=== PATIENT | male | born 1960 | race African-American/Black ===

== ENCOUNTER 2020-08-12 15:35 | Observation (INO) | payer BC, SELFPAY ==
[2020-08-12] VITALS (13 sets, daily range): BP systolic 96–150; BP diastolic 77–101; PULSE 77–125; RESP 17–23; TEMP 36–36.8; O2SAT 99–100; BMI 22.3
--- NOTE | ~2020-08-12 | CT_ITS ---
EXAMINATION: CT brain wo con EXAM DATE: 08/12/2020 16:20 INDICATION: Seizures, fall with head injury. TECHNIQUE: Spiral CT of the head was performed without contrast. Axial, coronal and sagittal images were reviewed. The dose-length product (DLP) for this examination was 681.00 mGy-cm. The exposure w as tailored according to patient size, and iterative reconstruction (ASIR) was used as additional dos e reduction technique. There is no prior study for comparison. FINDINGS: There is no acute intraparenchymal hemorrhage. No evidence of intraparenchymal brain mass lesion. No evidence of acute infarction. Please note that initial head CT has limited sensitivity f or small or acute infarctions. There is mild periventricular and subcortical hypodensity, nonspecific but probably related to small vessel ischemic disease. There is moderate prominence of the sulci a nd ventricles related to cerebral atrophy. There is intracranial carotid arteriosclerosis. There a re no extra-axial collections. There is no mass effect or midline shift. Small right frontal scalp contusion, possible overlying laceration. The orbits are unremarkable. The visualized sinuses and mas toid air cells are well aerated. IMPRESSION: 1. No acute intracranial findings. 2. Chronic age related findings. 3. Small right parietal scalp contusion. Possible overlying laceration. Reviewed, dictated and finalized at location G.
--- NOTE | ~2020-08-12 | XR_ITS ---
EXAMINATION: XR chest 2V EXAM DATE: 08/12/2020 16:27 INDICATION: Syncope, dehydration, history of hypertension. TECHNIQUE: Frontal and lateral projections of the chest obtained and reviewed. There is no prior remigio dy for comparison. FINDINGS: The lungs are clear. There are no pleural effusions. The cardiomediastinal silhouette is within normal limits. There is no pneumothorax suspected. Patient has diffuse idiopathic skeletal h yperostosis (DISH). IMPRESSION: No acute cardiopulmonary findings. Reviewed, dictated and finalized at location G.
--- NOTE | 2020-08-12 15:43 | ECG_ITS ---
Measurements Intervals [place] Rate: 91 P: 32 WI: 168 QRS: 27 QRSD: 93 T: 45 QT: 348 QTc: 429 Interpretive Statements SINUS RHYTHM BASELINE ARTIFACT- I, II, III, AVR, AVL, AVF BORDERLINE ECG Electronically Signed On 08-12-2020 16:09:24 CDT by Dixon Montilla D.O.
[2020-08-12] MEDS: SODIUM CHLORIDE 0.9% IV 1,000 ML 999 ML IV CONT ×2 (15:56→16:51)
[2020-08-12 16:14] LABS: Basophils Percent Auto 0.2 % (0.2-1.2); Eosinophils Percent Auto 0.5 % (0-4.4); Hemoglobin 12.3 g/dL (14.0-18.0); Immature Granulocyte Absolute 0.04 K/mm3 (0.00-0.031); Immature Granulocyte Percent A 0.7 % (0-0.5); Lymphocytes Percent Auto 15.1 % (18.3-44.2); Mean Corpuscular HGB Conc 35.1 g/dl (32-36); Mean Corpuscular Hemoglobin 32.3 pg (26-34); Mean Corpuscular Volume 91.9 fl (80-100); Mean Platelet Volume 9.7 fl (7.4-10.4); Monocytes Absolute Auto 0.5 K/mm3 (0.1-0.6); Monocytes Percent Auto 7.7 % (2.6-8.5); Neutrophils Absolute Auto 4.5 K/mm3 (1.3-6.7); Neutrophils Percent Auto 75.8 % (45.5-73.1); Nucleated Red Blood Cells Perc 0.3 % (0.0-0.2); Platelet Count Result 163 k/mm3 (150-375); Red Blood Count 3.81 M/mm3 (4.6-6.20); Red Cell Distribution Width 14.3 % (11.5-14.5)
[2020-08-12 16:22] LABS: Prothrombin Time 12.6 Seconds (11.1-14.7)
[2020-08-12 16:23] LABS: Alanine Aminotransferase 46 U/L (4-50); Albumin Level 4.8 g/dL (3.5-5.1); Alkaline Phosphatase 70 U/L (38-126); Anion Gap 12 mmol/L (8-16); Aspartate Amino Transferase 72 U/L (17-59); Blood Urea Nitrogen 19 mg/dL (9-20); Calcium 10.1 mg/dL (8.4-10.2); Carbon Dioxide 24 mmol/L (22-30); Chloride 101 mmol/L (98-107); Estimated CRCL calculation 34 ml/min; Estimated Glomerular Filt Rate 39; Glucose 137 mg/dL (75-110); Partial Thromboplastin Time 24.9 SECONDS (22.3-36.8); Potassium 3.6 mmol/L (3.4-5.0); Sodium 137 mmol/L (137-145)
[2020-08-12 16:35] LABS: Troponin I < 0.012 ng/mL (0.000-0.034)
[2020-08-12] MEDS: TETANUS,DIPHTHERIA,AC PERTUSSIS ADULT (0.5 ML) BOOSTRIX IM (17:11)
[2020-08-12] MEDS: diazePAM INJ (*CRX) 10 MG/2 ML SYRINGE 3 MG IV PUSH (17:26)
--- NOTE | 2020-08-12 18:18 | ED.SEIZURE ---
HPI - Seizure General Chief Complaint: Seizure Stated Complaint: FALL Time Seen by Provider: 08/12/20 15:35 History of Present Illness HPI Narrative: Patient is a 60-year-old male who presents the ER with possible seizure versus syncope. Patient was at a local restaurant when he collapsed from his barstool. Had brief LOC and woke up and was oriented immediately. EMS arrived and patient refused transport. They were called back out within 10 minutes after a recurrent episode. Patient had loss of urine. Patient thinks he had a seizure 5 years ago but is unsure if his seizure versus syncope at that time as well. Patient is a daily drinker. Reports he gets the shakes 2 days after he stops drinking. Related Data Allergies Allergy/AdvReac Type Severity Reaction Status Date / Time No Known Allergies Allergy Unknown Unverified 09/29/17 17:51 Review of Systems Review of Systems: All systems reviewed & are unremarkable except as noted in HPI and below Constitutional: Constitutional: Denies chills, Denies fever(s) and Denies weakness ENT: Denies nasal congestion and Denies sore throat Respiratory: Respiratory: Denies cough and Denies dyspnea Gastrointestinal: Gastrointestinal: Denies abdominal pain, Denies nausea and Denies vomiting Neurologic: Reports syncope, Denies headache(s), Denies focal weakness and Denies numbness Comments: ?[facility] Past Medical History Medical History (Updated 08/12/20 @ 18:31 by Salinas Yeung MD) Benign essential HTN Calculus of gallbladder Chronic anemia Chronic renal failure, stage 2 (mild) Elevated PSA Internal hemorrhoids Mixed hyperlipidemia Normal colonoscopy Surgical History Surgical History (Updated 02/03/20 @ 20:52 by Mandy Jolly MD) History of appendectomy Family History Family History (Updated 01/12/19 @ 10:23 by DOCTOR UNKNOWN) Sibling Patient's sister is in good health Patient's brother is in good health Father Family history of lung cancer, Onset Age: 69 Mother Family history of lung cancer Other Hypertension Social History Social History (Updated 01/31/20 @ 11:39 by Laura Padron) Social History: Smoking status: Never smoker Second hand tobacco smoke exposure: No Alcohol intake: current Drinks per week: 8 Substance use: never Substance use type: does not use Gender identity (if verbalized by the patient): Male Exam Narrative: Exam Narrative: GENERAL: Well-appearing, well-nourished, and in no acute distress. HEAD: Normocephalic, 2 cm laceration right parieto-occipital region.. EYES: PERRL and EOMI. ENT: Mucous membranes moist. CHEST: Clear to auscultation. No respiratory distress. HEART: Regular rate and rhythm. Normal peripheral pulses. ABDOMEN: Soft, nontender, nondistended. EXTREMITIES: Normal range of motion. No edema. SKIN: Warm, dry, no rash. NEURO: No focal deficits. Diffuse tremors. Alert and oriented x3. Course Course Emergency Course: Patient persistently tremulous despite fluids and some Valium. Will give additional dose of Valium. Suspect alcohol withdrawal seizure however patient was quite orthostatic upon arrival. Vital Signs Vital signs: Vital Signs Temperature 98.2 F 08/12/20 15:35 Pulse Rate 88 08/12/20 15:35 Respiratory Rate 17 08/12/20 15:35 Blood Pressure 110/86 08/12/20 15:35 Pulse Oximetry 100 08/12/20 15:35 Temperature 98.2 F 08/12/20 15:35 Pulse Rate 103 H 08/12/20 18:21 Respiratory Rate 22 H 08/12/20 18:00 Blood Pressure 144/101 H 08/12/20 18:21 Pulse Oximetry 99 08/12/20 18:00 MDM - Seizure Lab Data Result diagrams: 08/12/20 16:05 08/12/20 16:05 Labs: Lab Results 08/12/20 08/12/20 08/12/20 Range/Units 16:05 16:05 16:05 WBC 6.0 (4.5-10.0) K/mm3 RBC 3.81 L (4.6-6.20) M/mm3 Hgb 12.3 L (14.0-18.0) g/dL Hct 35.0 L (42.0-52.0) % MCV 91.9 (80-100)
[2020-08-12] MEDS: diazePAM INJ (*CRX) 10 MG/2 ML SYRINGE 5 MG IV PUSH (18:24)
[2020-08-12 18:31] LABS: Magnesium 1.8 mg/dL (1.6-2.3)
--- NOTE | 2020-08-12 20:15 | PM.IMHP ---
H&P: HPI History of Present Illness Date/Time: 08/12/20 20:15 Chief complaint: alcohol withdrawal, seizure vs syncope Narrative: Toni Sheppard is a 60-year-old male with hypertension and alcohol abuse who presented to the emergency department earlier today for evaluation after a suspected seizure. He was at a local restaurant with friends when he began feeling strange and started shaking; the next thing he knows he was coming to on the floor, surrounded by his friends. He was told that he loss consciousness and appeared to have a brief seizure for maybe 15 seconds with ?foaming of the mouth? and loss of urine. He declined EMS transported at that time as he felt fine, and was not postictal. Within about 10 minutes he had a recurrent episode and he agreed to come in for evaluation. He was tremulous in the emergency department was also found to be orthostatic. With further questioning he does admit to drinking 4 or 5 days a week, typically consuming 10 beers and several shots of vodka each of those days. He does not want to be a daily drinker, so he always has periods of at least 2 or 3 days a week where he does not consume alcohol. The 1st day after he stops drinking he feels poorly with nausea, vomiting, poor appetite, and tremors which seem to last for a couple of days. He believes he had a seizure about 5 years ago in a similar setting, but was never diagnosed with alcohol withdrawal seizures. At the time my evaluation he is tremulous and tachycardic but is very pleasant and has no complaints. He specifically denies sweats, nausea, and hallucinations. He has some mild discomfort on the right side of his head where he struck it on and nearby wall with his 1st episode. Of note, he was given Valium in the emergency department with improvement in his shakes. Review of Systems Review of Systems: Narrative: Twelve systems were reviewed with pertinent positives and negatives as per HPI. No fever, chills, or sweats. No recent cold or flu symptoms. He denies chest pain, pleuritic pain, and palpitations. No cough or shortness of breath. No focal weakness or paresthesias. Except as documented, all other systems were reviewed and are negative. [facility] Past Medical History Medical History (Updated 08/12/20 @ 22:43 by Sara Mendes PA-C) Alcohol abuse Calculus of gallbladder Chronic anemia Chronic renal failure, stage 2 (mild) GFR is consistent with stage 3 chronic kidney disease however he has been followed by Dr. Kent who believes that his labs are underestimating his renal function and considers him to be stage 2 chronic kidney disease. Elevated PSA Prostate biopsy was reportedly negative in September 2019. Essential hypertension Internal hemorrhoids (~2014) Mixed hyperlipidemia Surgical History Surgical History (Updated 08/12/20 @ 22:39 by Sara Mendes PA-C) History of appendectomy History of prostate biopsy Family History Family History Sibling Patient's sister is in good health Patient's brother is in good health Father Family history of lung cancer, Onset Age: 69 Mother Family history of lung cancer Other Hypertension Social History Social History (Updated 08/12/20 @ 22:48 by Sara Mendes PA-C) Social History: The patient is and lives in [place] with his son. 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 He is a lifelong nonsmoker and denies illicit substance use. He drinks alcohol about 5 days a week, usually 10 beers and shots of vodka each day. He designates his son as his surrogate decision maker and he wishes to be a full code. Spiritual care concerns: No Meds Home Medications and Allergies Home Medications Medication Instructions Recorded Confirmed Type lisinopril 20 1 tablet PO DAILY #90 tablet 01/31/20 08/12/20 Rx mg-hydrochlorothiazide 12.5 mg tablet metoprolol succinate 100 mg 100 mg PO DA
[2020-08-12] MEDS: SODIUM CHLORIDE 0.9% IV 1,000 ML 125 ML IV CONT (20:26)
[2020-08-12 20:33] LABS: Ethanol < 10 mg/dL (<10)
[2020-08-12 21:25] LABS: Iron 39 ug/dL (49-181)
[2020-08-12 21:34] LABS: Percent Iron Saturation 15 % (20-50)
[2020-08-12 21:41] LABS: Folic Acid 11.6 ng/mL (2.76->20)
[2020-08-12] MEDS: THIAMINE HCL 200 MG/2 ML VIAL 100 MG IV PUSH (23:08)
[2020-08-12] MEDS: CYANOCOBALAMIN INJ 1,000 MCG/ML VIAL 1000 MCG IM (23:09)
[2020-08-12] MEDS: chlordiazePOXIDE (*CRX) 25 MG CAPSULE PO (23:13)
[2020-08-13] VITALS (10 sets, daily range): BP systolic 121–144; BP diastolic 70–87; PULSE 76–109; RESP 16–18; TEMP 36.7–37.2; O2SAT 99–100
[2020-08-13] MEDS: SODIUM CHLORIDE 0.9% IV 1,000 ML 125 ML IV CONT (02:50)
[2020-08-13] MEDS: chlordiazePOXIDE (*CRX) 25 MG CAPSULE PO (05:57)
[2020-08-13] MEDS: FOLIC ACID 1 MG TABLET PO (07:46)
[2020-08-13] MEDS: METOPROLOL SUCCINATE EXT REL 100 MG TABCR PO (07:46)
[2020-08-13] MEDS: ASPIRIN 325 MG TABLET PO (07:46)
[2020-08-13] MEDS: THIAMINE HCL 100 MG TABLET PO (07:46)
[2020-08-13] MEDS: THERAPEUTIC MULTIVITAMINS/MINERALS TAB (*BKC) 1 TABLET PO (07:46)
[2020-08-13 08:50] LABS: Alanine Aminotransferase 44 U/L (4-50); Albumin Level 4.4 g/dL (3.5-5.1); Alkaline Phosphatase 60 U/L (38-126); Anion Gap 9 mmol/L (8-16); Aspartate Amino Transferase 75 U/L (17-59); Bilirubin,Total 0.7 mg/dL (0.2-1.3); Blood Urea Nitrogen 13 mg/dL (9-20); Calcium 9.3 mg/dL (8.4-10.2); Carbon Dioxide 26 mmol/L (22-30); Chloride 103 mmol/L (98-107); Estimated CRCL calculation 53 ml/min; Estimated Glomerular Filt Rate > 60; Glucose 107 mg/dL (75-110); Potassium 3.6 mmol/L (3.4-5.0); Sodium 138 mmol/L (137-145)
--- NOTE | 2020-08-13 09:15 | ECHO_ITS ---
Patient Info Name: Toni Sheppard Age: 60 years : 1960 Gender: Male Ht: 70 in Wt: 155 lbs BSA: 1.86 m2 HR: 67 bpm BP: 130 / 81 mmHg Heart Rhythm: Sinus Rhythm Technical Quality: Good Exam Date: 08/13/2020 11:18 AM Exam Location: [facility] Patient Status: Inpatient Admit Date: 08/12/2020 Staff Ordering Physician: Huang Liang PA-C Furniture Mover Driver: Ramírez Rasheed RDCS Attending Provider: Huang Liang PA-C Referring Physician: Garth VÁSQUEZ; Exam Type: CA echo doppler color flow Study Info Indications I10 - Essential (primary) hypertension Complete two-dimensional, color flow and Doppler transthoracic echocardiogram is performed. History/Risk Factors HTN; EtOH withdrawal, orthostatic HoTN. Summary 1. Complete two-dimensional, color flow and Doppler transthoracic echocardiogram is performed. 2. Left ventricular chamber dimension is normal. 3. Left ventricular systolic function is normal, estimated at 60-65%. 4. The left ventricular diastolic function is normal. 5. E/e' 9 is minimally elevated. 6. There is trace aortic valve regurgitation. 7. The mitral valve has moderately calcified anterior leaflet. 8. There is mild mitral valve regurgitation. 9. No pulmonary hypertension, estimated pulmonary arterial systolic pressure is 31 mmHg. 10. There is mild pulmonic regurgitation. Left Ventricle E/e' 9 is minimally elevated. Left ventricular chamber dimension is normal. Left ventricular systolic function is normal, estimated at 60-65%. The left ventricular diastolic function is normal. Right Ventricle Right ventricular chamber dimension is normal. Right ventricular systolic function is normal. Left Atria Left atrial chamber dimension is normal. Right Atria Right atrial chamber dimension is normal. Aortic Valve The aortic valve is trileaflet. There is no aortic valve stenosis. There is trace aortic valve regurgitation. Pulmonic Valve There is mild pulmonic regurgitation. Mitral Valve The mitral valve has moderately calcified anterior leaflet. There is no mitral valve stenosis. There is mild mitral valve regurgitation. Tricuspid Valve There is no tricuspid valve regurgitation. No pulmonary hypertension, estimated pulmonary arterial systolic pressure is 31 mmHg. Pericardium/Pleural There is no pericardial effusion. Inferior Vena Cava Normal inferior vena cava with >50% collapse upon inspiration consistent with normal right atrial pressure, 5 mmHg. Aorta The aortic root size at the sinus of Valsalva is normal. Left Ventricular Outflow Tract Name Value Normal LVOT 2D LVOT Diameter 2.0 cm LVOT Doppler LVOT Peak Gradient 4 mmHg LVOT Mean Gradient 2 mmHg LVOT VTI 17 cm LVOT VTI/AV VTI Ratio 0.8 LVOT Stroke Volume 57 ml LVOT CO 5.0 l/min LVOT CI 2.7 l/min/m2 Mitral Valve
--- NOTE | 2020-08-13 10:30 | PM.DS ---
DS: Admitting Diagnosis Admitting Diagnosis Admitting Diagnosis: alcohol withdrawal, seizure vs syncope DS: Discharge Diagnosis Discharge Diagnosis (1) Loss of consciousness: Code(s): R40.20 - Unspecified coma Status: Inactive Assessment and Plan: Patient had seizure like activity x 2 yesterday following LOC, resulting a small head laceration (treated in ED with latoya). No post-ictal state, although loss of urine during one of the episodes. Notes similar episode happened nearly 5 years ago after a binge drinking episode and after he rode 8 miles on a bike with his friend. Patient orthostatic in ED, but this appears to have resolved. CT imaging grossly unremarkable for intracranial process. Could be related to alcohol withdrawal seizure, although he had a shot and beer yesterday prior to the incidents versus orthostatic hypotension with possible dehydration. Telemetry shows sinus rhythm; tachycardia occasionally; artifact noted; no other ectopy Echo grossly unremarkable He has been counseled on alcohol cessation and staying hydrated Last drink was yesterday, so will provide with 2 more days of librium Q12hr\ Instructed him not to drive/swim/bath until speaking with PCP F/u with PCP (2) Orthostatic hypotension: Code(s): I95.1 - Orthostatic hypotension Status: Acute Assessment and Plan: Appears to have resolved with IVF. Will stop IVF f/u with PCP (3) Alcohol withdrawal seizure: Code(s): F10.239 - Alcohol dependence with withdrawal, unspecified; R56.9 - Unspecified convulsions Status: Acute Assessment and Plan: No post-ictal state and had beer and a shot prior to episode yesterday As above, will do Libirum Q12 for 2 more days F/u with PCP Cessation resources have been provided We had lengthy discussion about benefits of alcohol cessation. He seems willing/motivated to stop drinking (4) Chronic renal failure, stage 2 (mild): Code(s): N18.2 - Chronic kidney disease, stage 2 (mild) Status: Acute Assessment and Plan: Likely acute on chronic renal failure; unclear baseline. Cr improved to 1.30 overnight with IVF. Apison to be due to dehydration Will stop IV F Recommended adequate PO intake F/u with PCP\ (5) Essential hypertension: Code(s): I10 - Essential (primary) hypertension Status: Acute Assessment and Plan: BP has improved overnight. Will continue home metorpolol Will resume amlodipine at discharge Will continue to hold lisinopril/HCTZ F/u with PCP on when to resume above med given renal function and orthostatic hypotension Monitor BP daily after discharge (6) Alcohol abuse: Code(s): F10.10 - Alcohol abuse, uncomplicated Status: Acute Assessment and Plan: Please see above under alcohol withdrawal seizure. (7) B12 deficiency: Code(s): E53.8 - Deficiency of other specified B group vitamins Status: Acute Assessment and Plan: Given vit B12 IM injection this hospital stay Will give daily supplement at discharge F/u with PCP DS: Summary Hospital Course Reason for hospitalization: LOC, seizure like activity; possibly alcohol withdrawal seizure vs orthostatic hypotension Hospital Course: Patient is a 60 yo M with history of hypertension and alcohol abuse who presented to the emergency department on 08/12 for evaluation after a suspected seizure/LOC. While at a restaurant, he had one shot and a beer and lost consciousness and had seizure activity twice while sitting up. He was subsequently brought to the ED for further evaluation. While in the ED he was noted to be orthostatic. Creatinine was found to be 2.10 on arrival. AST mild
== END 2020-08-13 14:01 | disposition home or self-care (01) ==
LOC: ANHED 18:40 → ANH3MEDSUR 08-13 06:49
PROVIDERS: Physician Assistant; Admitting Provider Internal Medicine; Emergency Provider Emergency Medicine; PCP Family Medicine; Visit Provider Physician Assistant
DX: R40.20 Unspecified coma (principal); I95.1 Orthostatic hypotension; F10.288 Alcohol dependence with other alcohol-induced disorder; R56.9 Unspecified convulsions; S01.01XA Laceration without foreign body of scalp, initial encounter; W18.39XA Other fall on same level, initial encounter; I12.9 Hypertensive chronic kidney disease with stage 1 through stage 4 chronic kidney disease, or unspecified chronic kidney disease; M18.2 Bilateral post-traumatic osteoarthritis of first carpometacarpal joints; E78.2 Mixed hyperlipidemia; D64.9 Anemia, unspecified; I34.0 Nonrheumatic mitral (valve) insufficiency; I37.1 Nonrheumatic pulmonary valve insufficiency; E53.8 Deficiency of other specified B group vitamins; Z23 Encounter for immunization
CPT/HCPCS: 12001; 36415; 70450; 71046; 80053; 80307; 82607; 82728; 82746; 83540; 83550; 83735; 84443; 84484; 85025; 85055; 85610; 85730; 90471; 90715; 93005; 93306; 96361; 96372; 96374; 96375; 96376; 99285; A9270; G0378; J3360; J3411; J3420; J7030

== ENCOUNTER 2023-11-04 02:35 | Day surgery (SDC) | payer MEDICARE, SELFPAY ==
[2023-10-21 14:37] VITALS: BMI 23.3
--- NOTE | 2023-11-02 09:35 | SUR.PREOP ---
Patient called regarding upcoming procedure. Reviewed preop instructions, appointment times, and procedure prep.
--- NOTE | 2023-11-03 16:04 | PM.HPGS ---
History of Present Illness History of Present Illness Consent: Risks, benefits, and alternatives have been discussed and questions answered. Patient agrees to proceed with procedure. Chief complaint: Anemia,Unspecified Narrative: Toni Sheppard Jr. is a 63 year old male For investigation of anemia. Apparently he had laboratory studies ordered by his primary care physician but these may not have been done. The last hemoglobin I can find is 12.3. Review of Systems Review of Systems: All systems reviewed & are unremarkable except as noted in HPI and below PMFSH Past Medical History Medical History Alcohol abuse Calculus of gallbladder Chronic anemia Chronic renal failure, stage 2 (mild) GFR is consistent with stage 3 chronic kidney disease however he has been followed by Dr. Kent who believes that his labs are underestimating his renal function and considers him to be stage 2 chronic kidney disease. Elevated liver enzymes Elevated PSA Prostate biopsy was reportedly negative in September 2019. Essential hypertension Gout Internal hemorrhoids (~2014) Mixed hyperlipidemia Normocytic anemia Surgical History Surgical History History of appendectomy History of prostate biopsy Family History Family History Sibling Patient's sister is in good health Patient's brother is in good health Father Family history of lung cancer, Onset Age: 69 Mother Family history of lung cancer Other Hypertension Social History Social History Social History: The patient is and lives in [place] with his son. 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 He is a lifelong nonsmoker and denies illicit substance use. He drinks alcohol about 5 days a week, usually 10 beers and shots of vodka each day. He designates his son as his surrogate decision maker and he wishes to be a full code. Smoking status: Never smoker Second hand tobacco smoke exposure: No Alcohol intake: current Drinks per week: 8 Substance use: never Substance use type: does not use Living arrangements: alone Occupation/Education: retired Gender identity (if verbalized by the patient): Male Sexual Orientation (if Verbalized by the Patient): Straight or Heterosexual Spiritual care concerns: No Meds Home Medications and Allergies Home Medications Medication Instructions Recorded Confirmed Type metoprolol succinate 100 mg 100 mg PO DAILY #90 tabs 01/31/20 10/21/23 Rx tablet,extended release 24 hr amlodipine 10 mg tablet (Norvasc) 10 mg PO DAILY 08/12/20 10/21/23 History cyanocobalamin (vitamin B-12) 1,000 mcg PO DAILY #30 caps 08/13/20 10/21/23 Rx 1,000 mcg capsule allopurinol 300 mg tablet 300 mg PO DAILY #30 tabs 09/02/20 10/21/23 Rx rosuvastatin 5 mg tablet 5 mg PO DAILY 10/06/23 10/21/23 History Allergies Allergy/AdvReac Type Severity Reaction Status Date / Time No Known Allergies Allergy Unknown Unverified 11/04/23 10:37 Exam Resp: Auscultation: clear to auscultation bilaterally Cardio: Rate: regular rate Rhythm: regular rhythm GI: GI Palp: Yes Soft to palpation and No Tenderness to palpation present (GI) Assessment and Plan Assessment and plan (1) Normocytic anemia: Code(s): D64.9 - Anemia, unspecified Status: Acute Assessment and Plan: Colonoscopy with possible biopsy or polypectomy or cautery or injection of substances.
[2023-11-04 10:38] VITALS: BP 125/77; PULSE 66; RESP 18; TEMP 36.1; O2SAT 100
[2023-11-04] MEDS: LACTATED RINGERS 1,000 ML 150 ML IV CONT (10:56)
--- NOTE | 2023-11-04 11:01 | WPDANESEPPF ---
Anes - Initial Pre Proc Eval Procedure: Operation Date: 11/04/23 11:30 Proposed Procedures p Colonoscopy - Jayce Arroyo MD Date/Time: 11/04/23 11:01 Surgeon: Jayce Arroyo MD Pre Op Diagnosis: Anemia,Unspecified Patient Data Age: 63 Gender: M Height: 1.78 m Weight: 73 kg Last Vital Signs Temp 36.1 C L 11/04/23 10:38 Pulse 66 11/04/23 10:38 Resp 18 11/04/23 10:38 BP 125/77 11/04/23 10:38 Pulse Ox 100 11/04/23 10:38 O2 Del Method Room Air 11/04/23 10:38 Allergies Allergy/AdvReac Type Severity Reaction Status Date / Time No Known Allergies Allergy Unknown Unverified 11/04/23 10:37 Home Medications Medication Instructions Recorded Confirmed Type metoprolol succinate 100 mg 100 mg PO DAILY #90 tabs 01/31/20 10/21/23 Rx tablet,extended release 24 hr amlodipine 10 mg tablet (Norvasc) 10 mg PO DAILY 08/12/20 10/21/23 History cyanocobalamin (vitamin B-12) 1,000 mcg PO DAILY #30 caps 08/13/20 10/21/23 Rx 1,000 mcg capsule allopurinol 300 mg tablet 300 mg PO DAILY #30 tabs 09/02/20 10/21/23 Rx rosuvastatin 5 mg tablet 5 mg PO DAILY 10/06/23 10/21/23 History Patient hx anesthesia problems: none Family hx anesthesia problems: none Results Review: All pre-operative results and documents have been reviewed as part of the pre-operative evaluation. [facility] Past Medical History Medical History Alcohol abuse Calculus of gallbladder Chronic anemia Chronic renal failure, stage 2 (mild) GFR is consistent with stage 3 chronic kidney disease however he has been followed by Dr. Kent who believes that his labs are underestimating his renal function and considers him to be stage 2 chronic kidney disease. Elevated liver enzymes Elevated PSA Prostate biopsy was reportedly negative in September 2019. Essential hypertension Gout Internal hemorrhoids (~2014) Mixed hyperlipidemia Normocytic anemia Surgical History Surgical History History of appendectomy History of prostate biopsy Family History Family History Sibling Patient's sister is in good health Patient's brother is in good health Father Family history of lung cancer, Onset Age: 69 Mother Family history of lung cancer Other Hypertension Social History Social History Social History: The patient is and lives in [place] with his son. 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 He is a lifelong nonsmoker and denies illicit substance use. He drinks alcohol about 5 days a week, usually 10 beers and shots of vodka each day. He designates his son as his surrogate decision maker and he wishes to be a full code. Smoking status: Never smoker Second hand tobacco smoke exposure: No Alcohol intake: current Drinks per week: 8 Substance use: never Substance use type: does not use Living arrangements: alone Occupation/Education: retired Gender identity (if verbalized by the patient): Male Sexual Orientation (if Verbalized by the Patient): Straight or Heterosexual Spiritual care concerns: No Anes - Eval Final PreProcedure Day of Procedure 11/04/23 11:01 Patient weight: normal Heart: regular rate and rhythm Lungs: clear to auscultation Airway: Mallampati scale class II Neurological: alert and oriented Last oral intake: >/= 8 hours ASA classification: III Emergent: no Anesthetic plan: proceed Anesthesia type and monitoring: general GIVS and standard monitoring Results Review: All pre-operative results and documents have been reviewed as part of the pre-operative evaluation. Informed Consent: The patient's anesthetic plan and its attendant risks and benefits were discussed with the patient/family/POA. Questions were solicited and answers provided to the satisfaction
[2023-11-04 11:29] VITALS: BP 105/67; PULSE 80; RESP 15; O2SAT 100
[2023-11-04 11:39] VITALS: BP 101/71; PULSE 71; RESP 23; O2SAT 100
[2023-11-04 11:49] VITALS: BP 98/71; PULSE 75; RESP 25; O2SAT 100
== END 2023-11-04 12:04 | disposition home or self-care (01) ==
PROVIDERS: PCP Student in an Organized Health Care Education/Training Program; Visit Provider Internal Medicine Gastroenterology
PROC: 0DJD8ZZ Inspection of Lower Intestinal Tract, Via Natural or Artificial Opening Endoscopic (ICD-10-PCS; CPT 45378; principal; 2023-11-04 11:30)
DX: D50.9 Iron deficiency anemia, unspecified (principal); K64.8 Other hemorrhoids; I12.9 Hypertensive chronic kidney disease with stage 1 through stage 4 chronic kidney disease, or unspecified chronic kidney disease; N18.2 Chronic kidney disease, stage 2 (mild); E78.2 Mixed hyperlipidemia; M10.9 Gout, unspecified
CPT/HCPCS: 45378; J2704; J7120

== ENCOUNTER 2023-11-28 08:49 | Outpatient (CLI) | payer MEDICARE, SELFPAY ==
--- NOTE | ~2023-11-28 | US_ITS ---
Limited Abdominal Sonogram: Real-time sonographic imaging of the right upper quadrant was performed. Clinical History: Abnormal liver enzymes Findings: The liver appears mildly echogenic, with no evidence of mass lesion or bile duct dilatatio n. Main portal vein demonstrates normal direction of flow. The gallbladder is well distended, and con tains echogenic, shadowing gallstones. No gallbladder wall thickening. The common bile duct measures 4 mm. The visualized pancreas, aorta, and IVC are unremarkable. Right upper renal cyst noted. Impression: Cholelithiasis. Diffuse fatty infiltration of the liver. Reviewed, dictated and finalized at location . N MEAT PACKER Impression: Cholelithiasis. Diffuse fatty infiltration of the liver.
== END 2023-11-28 08:50 | disposition home or self-care (01) ==
PROVIDERS: PCP Student in an Organized Health Care Education/Training Program; Visit Provider Nurse Practitioner
DX: R74.8 Abnormal levels of other serum enzymes (principal); K80.20 Calculus of gallbladder without cholecystitis without obstruction; K76.0 Fatty (change of) liver, not elsewhere classified
CPT/HCPCS: 76705

== ENCOUNTER 2023-12-26 11:02 | Outpatient (CLI) | payer MEDICARE, SELFPAY ==
[2023-12-26 11:46] LABS: Hematocrit 37.5 % (42.0-52.0); Hemoglobin 13.1 g/dL (14.0-18.0); Mean Corpuscular HGB Conc 34.9 g/dl (32-36); Mean Corpuscular Hemoglobin 30.2 pg (26-34); Mean Corpuscular Volume 86.4 fl (80-100); Red Blood Count 4.34 M/mm3 (4.6-6.20); Red Cell Distribution Width 13.2 % (11.5-14.5); White Blood Count 4.5 K/mm3 (4.5-10.0)
[2023-12-26 11:47] LABS: Mean Platelet Volume 10.9 fl (7.4-10.4); Platelet Count Result 162 k/mm3 (150-375)
[2023-12-26 12:00] LABS: Alanine Aminotransferase 53 U/L (6-50); Albumin Level 4.3 g/dL (3.5-5.1); Alkaline Phosphatase 74 U/L (38-126); Anion Gap 8 mmol/L (8-16); Aspartate Amino Transferase 32 U/L (17-59); Bilirubin,Total 0.9 mg/dL (0.2-1.3); Blood Urea Nitrogen 19 mg/dL (9-20); Calcium 9.5 mg/dL (8.4-10.2); Carbon Dioxide 27 mmol/L (22-30); Chloride 105 mmol/L (98-107); Estimated Glomerular Filt Rate > 60; Glucose 103 mg/dL (65-110); Potassium 3.8 mmol/L (3.4-5.0); Sodium 140 mmol/L (137-145)
[2023-12-26 12:32] LABS: Hepatitis B Surface Antigen Negative (Negative)
[2023-12-26 12:38] LABS: HAV RESULT Negative (Negative); Hepatitis B Core IgM Result Negative (Negative)
[2023-12-26 12:50] LABS: Hepatitis C Virus Antibody Negative (Negative)
== END 2023-12-26 11:03 | disposition home or self-care (01) ==
LOC: ANHLAB 11:03
PROVIDERS: PCP Student in an Organized Health Care Education/Training Program; Visit Provider Nurse Practitioner
DX: K76.0 Fatty (change of) liver, not elsewhere classified (principal); R74.8 Abnormal levels of other serum enzymes; R94.5 Abnormal results of liver function studies; I10 Essential (primary) hypertension
CPT/HCPCS: 36415; 80053; 80074; 85027

== ENCOUNTER 2024-06-28 09:45 | Outpatient (CLI) | payer MEDICARE, SELFPAY ==
[2024-06-28 10:29] LABS: Basophils Percent Auto 0.4 % (0.2-1.2); Eosinophils Percent Auto 0.4 % (0-4.4); Hematocrit 41.6 % (42.0-52.0); Hemoglobin 14.2 g/dL (14.0-18.0); Immature Granulocyte Absolute 0.02 K/mm3 (0.00-0.031); Immature Granulocyte Percent A 0.4 % (0-0.5); Lymphocytes Absolute Auto 1.08 K/mm3 (0.9-3.2); Lymphocytes Percent Auto 19.4 % (18.3-44.2); Mean Corpuscular HGB Conc 34.1 g/dl (32-36); Mean Corpuscular Hemoglobin 30.6 pg (26-34); Mean Corpuscular Volume 89.7 fl (80-100); Mean Platelet Volume 9.9 fl (7.4-10.4); Monocytes Absolute Auto 0.5 K/mm3 (0.1-0.6); Monocytes Percent Auto 8.6 % (2.6-8.5); Neutrophils Absolute Auto 3.9 K/mm3 (1.3-6.7); Neutrophils Percent Auto 70.8 % (45.5-73.1); Platelet Count Result 154 k/mm3 (150-375); Red Blood Count 4.64 M/mm3 (4.6-6.20); Red Cell Distribution Width 13.2 % (11.5-14.5); White Blood Count 5.6 K/mm3 (4.5-10.0)
[2024-06-28 10:37] LABS: Prothrombin Time 13.1 Seconds (11.1-14.7)
[2024-06-28 10:49] LABS: Alanine Aminotransferase 166 U/L (6-50); Albumin Level 5.3 g/dL (3.5-5.1); Alkaline Phosphatase 69 U/L (38-126); Anion Gap 17 mmol/L (4-12); Aspartate Amino Transferase 130 U/L (17-59); Bilirubin,Total 1.3 mg/dL (0.2-1.3); Blood Urea Nitrogen 21 mg/dL (9-20); Calcium 9.8 mg/dL (8.4-10.2); Carbon Dioxide 23 mmol/L (22-30); Chloride 102 mmol/L (98-107); Estimated Glomerular Filt Rate 57; Glucose 128 mg/dL (65-110); Potassium 3.7 mmol/L (3.4-5.0); Sodium 142 mmol/L (137-145)
[2024-06-28 16:29] LABS: Hemoglobin A1C 4.6 % (<5.7)
[2024-06-29 17:23] LABS: Ceruloplasmin 31 mg/dL (14-30)
[2024-07-04 07:09] LABS: Tissue Transglutaminase IgA Ab <1.0 U/mL; Tissue Transglutaminase IgG Ab <1.0 U/mL
[2024-07-05 14:05] LABS: LKM 1 Antibody <=20.0 U (<=20.0)
[2024-07-06 11:48] LABS: Actin Antibody (IgG) <20 U (<20)
[2024-07-06 13:35] LABS: ALT 130 U/L (9-46); Alpha-2-Macroglobulin 173 mg/dL (106-279); Apolipoprotein A1 201 mg/dL (94-176); Fibrosis Score 0.34; Fibrosis Stage F1-F2; GGT 81 U/L (3-70); Haptoglobin 114 mg/dL (43-212); Necroinflammat Act Grade A3; Reference ID 5059145
[2024-07-10 07:58] LABS: Mitochondrial (M2) Ab (IgG) <20.0 U
== END 2024-06-28 09:46 | disposition home or self-care (01) ==
PROVIDERS: Nurse Practitioner; PCP Student in an Organized Health Care Education/Training Program; Visit Provider Internal Medicine Gastroenterology
DX: K76.0 Fatty (change of) liver, not elsewhere classified (principal); R74.8 Abnormal levels of other serum enzymes; R73.9 Hyperglycemia, unspecified; D64.9 Anemia, unspecified
CPT/HCPCS: 36415; 80053; 81596; 82104; 82390; 83036; 83520; 85025; 85610; 86038; 86039; 86364; 86376

== ENCOUNTER 2024-10-04 01:47 | Day surgery (SDC) | payer MEDICARE, SELFPAY ==
[2024-09-24 14:37] VITALS: BMI 22.9
[2024-10-04 07:35] VITALS: BP 133/78; PULSE 67; RESP 19; TEMP 36.1; O2SAT 100; BMI 22.1
[2024-10-04] MEDS: LACTATED RINGERS 1,000 ML 150 ML IV CONT (07:42)
--- NOTE | 2024-10-04 08:23 | P.PNAN_ITS ---
Anes - Initial Pre Proc Eval Procedure: Operation Date: 10/04/24 08:30 Proposed Procedures p Esophagogastroduodenoscopy - Shailesh Yan MD Date/Time: 10/04/24 08:23 Surgeon: Shailesh Yan MD Pre Op Diagnosis: anemia, ab level serum enzymes, fatty change liver Patient Data Age: 64 Gender: M Height: 1.78 m Weight: 70.1 kg Last Vital Signs Temp 36.1 C L 10/04/24 07:35 Pulse 67 10/04/24 07:35 Resp 19 10/04/24 07:35 BP 133/78 10/04/24 07:35 Pulse Ox 100 10/04/24 07:35 O2 Del Method Room Air 10/04/24 07:35 Allergies Allergy/AdvReac Type Severity Reaction Status Date / Time No Known Allergies Allergy Unknown Verified 10/04/24 07:34 Home Medications Medication Instructions Recorded Confirmed Type metoprolol succinate 100 mg 100 mg PO DAILY #90 tabs 01/31/20 10/04/24 Rx tablet,extended release 24 hr amlodipine 10 mg tablet (Norvasc) 10 mg PO DAILY 08/12/20 10/04/24 History cyanocobalamin (vitamin B-12) 1,000 mcg PO DAILY #30 caps 08/13/20 10/04/24 Rx 1,000 mcg capsule allopurinol 300 mg tablet 300 mg PO DAILY #30 tabs 09/02/20 10/04/24 Rx rosuvastatin 5 mg tablet 5 mg PO DAILY 10/06/23 10/04/24 History ferrous sulfate 27 mg iron tablet 27 mg PO DAILY 09/24/24 10/04/24 History Patient hx anesthesia problems: none Family hx anesthesia problems: none Results Review: All pre-operative results and documents have been reviewed as part of the pre- operative evaluation. [facility] Past Medical History Medical History Alcohol abuse Calculus of gallbladder Chronic anemia Chronic renal failure, stage 2 (mild) GFR is consistent with stage 3 chronic kidney disease however he has been followed by Dr. Kent who believes that his labs are underestimating his renal function and considers him to be stage 2 chronic kidney disease. Elevated liver enzymes Elevated PSA Prostate biopsy was reportedly negative in September 2019. Essential hypertension Gout Hepatic steatosis Internal hemorrhoids (~2015) Iron deficiency anemia Mixed hyperlipidemia Normocytic anemia Surgical History Surgical History History of appendectomy History of prostate biopsy Family History Family History Sibling Patient's sister is in good health Patient's brother is in good health Father Family history of lung cancer, Onset Age: 69 Mother Family history of lung cancer Other Hypertension Social History Social History Social History: The patient is and lives in [place] with his son. 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 He is a lifelong nonsmoker and denies illicit substance use. He drinks alcohol about 5 days a week, usually 10 beers and shots of vodka each day. He designates his son as his surrogate decision maker and he wishes to be a full code. Smoking status: Never smoker Second hand tobacco smoke exposure: No Alcohol intake: current Drinks per week: 12 Substance use: never Substance use type: does not use Living arrangements: with roommate(s) Occupation/Education: retired Gender identity (if verbalized by the patient): Male Sexual Orientation (if Verbalized by the Patient): Straight or Heterosexual Spiritual care concerns: No Anes - Eval Final PreProcedure Day of Procedure 10/04/24 08:23 Heart: regular rate and rhythm Lungs: normal air movement Airway: Mallampati scale class II Neurological: alert and oriented Last oral intake: >/= 8 hours ASA classification: III Emergent: no Anesthetic plan: proceed Anesthesia type and monitoring: general GIVS and standard monitoring Results Review: All pre-operative results and documents have been reviewed as part of the pre- operative evaluation. Informed Consent: The patient's anesthetic plan and its attendant risks and benefits were discussed with the patient/family/POA. Questions were solicited and answers provided to the satisfaction of the patient/family/POA.
--- NOTE | 2024-10-04 08:25 | WPDHPUPDATE1 ---
History and Physical Update Update Date/Time: 10/04/24 08:25 History and Physical has been reviewed, including an updated exam of the patient. There are NO changes in the patient's condition. Risks, benefits, and alternatives have been discussed and questions answered. Patient agrees to proceed with procedure.
[2024-10-04 08:38] VITALS: BP 100/65; PULSE 60; RESP 19; O2SAT 100
[2024-10-04 08:48] VITALS: BP 104/78; PULSE 65; RESP 20; O2SAT 100
[2024-10-04 08:58] VITALS: BP 137/74; PULSE 56; RESP 16; O2SAT 100
== END 2024-10-04 09:09 | disposition home or self-care (01) ==
PROVIDERS: PCP Student in an Organized Health Care Education/Training Program; Visit Provider Internal Medicine Gastroenterology
PROC: 0DJ08ZZ Inspection of Upper Intestinal Tract, Via Natural or Artificial Opening Endoscopic (ICD-10-PCS; CPT 43235; principal; 2024-10-04 08:30)
DX: D50.9 Iron deficiency anemia, unspecified (principal); K29.70 Gastritis, unspecified, without bleeding; K31.A19 Gastric intestinal metaplasia without dysplasia, unspecified site; I12.9 Hypertensive chronic kidney disease with stage 1 through stage 4 chronic kidney disease, or unspecified chronic kidney disease; N18.2 Chronic kidney disease, stage 2 (mild); D63.1 Anemia in chronic kidney disease; R74.8 Abnormal levels of other serum enzymes; K76.0 Fatty (change of) liver, not elsewhere classified; E78.2 Mixed hyperlipidemia; M10.9 Gout, unspecified
CPT/HCPCS: 43239; 88305; 88342; J2003; J2704; J7120

== ENCOUNTER 2025-03-15 07:49 | Outpatient (CLI) | payer MEDICARE, SELFPAY ==
--- NOTE | ~2025-03-15 | US_ITS ---
Limited Abdominal Sonogram: Real-time sonographic imaging of the right upper quadrant was performed. Clinical History: Fatty liver Findings: The liver appears echogenic, with no evidence of mass lesion or bile duct dilatation. Main portal vein demonstrates normal direction of flow. The gallbladder is well distended, and contains e chogenic shadowing gallstones. No gallbladder wall thickening. The common bile duct measures 5 mm. T he visualized pancreas, aorta, and IVC are unremarkable. Right kidney demonstrates normal size with s imple cyst present. Impression: Diffuse fatty infiltration of liver. Cholelithiasis. Reviewed, dictated and finalized at location M. Impression: Diffuse fatty infiltration of liver. Cholelithiasis.
--- OUTSIDE RECORDS SUMMARY | 2025-03-15 07:52 | XMS_ITS | Clinical Summary ---
Author Organization [facility] Address [address] [place] [address] Care Team Providers Care Edge Burnisher Name Role Phone Unavailable Primary Care Provider Unavailabl e Source Comments [facility],non-owned Affiliates and Associated Physician Practices is amultiple site organization consisting of ambulatory clinics and hospital sitesin [place], [place], [place] and [place]. This disclosure is being madepursuant to the Care Everywhere program and may not contain all information available regarding this patient. Last updated 18.[facility] Allergies No known active allergies Medications * Be aware that medications may not be up to date on this document. Alwaysverify current medications with the patient. lisinopril-hydro chlorothiazide (PRINIZIDE; ZESTORETIC) 10-12.5 MG tablet Take 1 Tab by mouth daily. 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 Gender Identity Not on file Sexual Orientation Not on file Plan of Treatment Health Maintenance Due Date Last Done Comments COLOGUARD (AGES 45-75) - COL ON CA SCREENING 1958 COLON MONITORING 1958 COLONOSCOPY - COLON CA SCREENING 1958 CT COLONOGRAPHY - COLON CA SCREENING 1958 Colorectal Cancer Screening 1958 FIT - COLON CA SCREENING 1958 FLEX SIG - COLON CA SCREENING 1958 HEPATITIS C SCREENING 01/31/1976 DTAP/TDAP/TD VACCINES (1 - Tdap) 1977 PNEUMOCOCCAL VACCINE 50+ (1 of 1 - PCV) 02/05/2008 ZOSTER VACCINE (1 of 2) 02/05/2008 COVID-19 VACCINE (1 - 2023-2 5 season) 2024 DEPRESSION SCREENING 11/21/2024 MEDICARE AWV CALENDAR YEAR 2024 INFLUENZA VACCINE (Season Ended) 2025 LIPID TESTING 07/07/2027 07/07/2022 Respiratory Syncytial Virus (RSV) Vaccine Pt: or over 60 yrs (1 - 1-dose 75+ series) 2033 HEPATITIS B VACCINE Aged Out No longe r eligible based on patient's age to complete this topic HIB VACCINE Aged Out No longer eligi ble based on patient's age to complete this topic HPV VACCINE Aged Out No longer eligi ble based on patient's age to complete this topic MENINGOCOCCAL (Group B) VACC INE SHARED DECISION-MAKING Aged Out No longer eligibl e based on patient's age to complete this topic MENINGOCOCCAL GROUPS A/C/Y/W VACCINE Aged Out No longer eligible b ased on patient's age to complete this topic Insurance [employer] SELF PAY NO INSURANCE Member Subscriber Plan / Payer (Ef fective for All Dates) Name:RebeccaTamiko parker Member ID:Not on file Relation to Subscriber:Not on file Name:COLLINTAMIKO Subscriber ID:Not on file (Home) Address: [address] [place] [phone] Payer ID:Not on file Group ID:Not on file Type:Self Pay Address: [place], [place] UHC MANAGED MEDICARE ADV
--- OUTSIDE RECORDS SUMMARY | 2025-03-15 07:52 | XMS_ITS | Encounter Summary ---
Author Organization [facility] Address [address] [place] [address] Care Team Providers Care Butcher Supervisor Name Role Phone Ag Tanner DO Primary Care Provider + Encounter Details Date Type Department Care Team (Late st Contact Info) Description 06/09/2024 MyChart Message Enc [facility] Medical Group Family & Internal Medicine [facility] [address] [place] [address] Ag Tanner DO [address] [place], [place] [phone] Vaccination Social History Tobacco Use Types Packs/Day Years Used Date Smoking Tobacco: Never Passive Smoke Exposure: Never Smokeless Tobacco: Never Alcohol Use Standard Drinks/Week Comments Yes 20 (1 standard drink = 0.6 oz pu re alcohol) 8 beers a week AUDIT-C Answer Date Recorded Q1: How often do you have a drink containing alcohol? 4 or more times a week 01/23/2021 Q2: How many drinks containi ng alcohol do you have on a typical day when you are drinking? 5 or 6 Q3: How often do you have si x or more drinks on one occasion? 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 Sexual Orientation Not on file Occupation Industry Job Start Date Job End Date Not on file Not on file Not on file Not on file documented as of this encounter Plan of Treatment Upcoming Encounters Date Type Department Care Team (Late st Contact Info) Description 05/07/2025 10:00 AM CDT Laboratory Only [facility] Family & Internal [address] [address] [place] [address] [place] [phone] 05/14/2025 10:20 AM CDT Office Visit [facility] Family Internal [address] [address] Ag Tanner DO [address] [place] [address] documented as of this encounter Visit Diagnoses Not on filedocumented in this encounter Additional Health Concerns Assessment Noted Time PHQ-9 Depression Total Score: 0 01/24/20 21 11:19 AM WASTE WATER WORKER documented as of this encounter Care Teams Butcher Supervisor Relationship Specialty Start Date End Date Ag Tanner DO [address] [place] [phone] PCP - General FAMILY PRACTICE 01/23/21 documented as of this encounter
--- OUTSIDE RECORDS SUMMARY | 2025-03-15 07:52 | XMS_ITS | Clinical Summary ---
Author Organization [facility] Address [address] [place] [address] Care Team Providers Care Administrative Personal Assistant Name Role Phone Ag Tanner Primary Care Provider + Allergies No known active allergies Medications vitamin B-12 (CYANOCOBALAMIN) 1000 mcg tablet Take 1 tablet (1,000 mcg total) by mouth daily. 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 take 1 tablet by mouth daily 100 tablet 2 4 Active rosuvastatin (CRESTOR) 5 MG tabletIndications :Hyperlipidemia TAKE 1 TABLET BY MOUTH EVERY NIGHT AT BEDTIME 90 tablet 1 5 Active amLODIPine (NORVASC) 10 MG tabletIndications :Essential (primary) hypertension TAKE 1 TABLET BY MOUTH DAILY 100 tablet 2 5 Active metoprolol succinate ER (TOPROL-XL) 100 MG 24 hr tabletIndications :Essential (primary) hypertension TAKE 1 TABLET BY MOUTH DAILY 100 tablet 2 5 Active Active Problems Problem Noted Date Diagnosed Date Metabolic dysfunction-associated steatohepatitis (MASH) 10/30/2024 History of needle biopsy of prostate with negati ve result 08/30/2022 BPH with obstruction/lower urinary tract symptom s 08/30/2022 Erectile dysfunction, unspecified erectile dysfu nction type 09/07/2021 Elevated glucose 09/07/2021 Elevated liver enzymes 09/07/2021 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 Immunizations Immunization Administration Dates Next Due Fluzone High Dose (IIV, trivalent, 0.5mL) 2023 Fluzone High Dose - >Age 65 (Prefilled Syringe) 09/01/2023 MODERNA COVID-19 (PRINT LINE TAILER THAO TIAGO), MRNA, LNP-S, PF, 50 MCG/ 0.25 ML DOSE 03/26/2022,11/24/2021 PFIZER COVID-19 (12+) MRNA, LNP-S, PF, TIM-SUCROSE, 30 MCG/0.3 ML (COMIRNATY) 10/30/2024 Pneumococcal (Prevnar 20) 02/21/2023 Shingrix 07/29/2021,05/21/2021 Tdap (Generic) 08/12/2020 Family History Medical History Relation Comments Alcohol Abuse Brother 1 Alcohol Abuse Brother 2 Lung Cancer Father Lung Cancer Mother Relation Status Comments Brother 1 Brother 2 Father Mother Social History Tobacco Use Types Packs/Day Years [...] Date Recorded Patient Health Questionnaire-2 Score 0 10/30/2024 Sex and Gender Information Value Date Recorded Sex Assigned at Male 10/30/2024 11:28 AM SCHEDULING CLERK Legal Sex Male 1:47 PM SCHEDULING CLERK Gender Identity Male 10/30/2024 11:28 AM SCHEDULING CLERK Sexual Orientation Not on file Occupation Industry Job Start Date Job End Date Not on file Not on file Not on file Not on file Last Filed Vital Signs Vital Sign Reading Time Taken Comments Blood Pressure 126/74 10/30/2024 11:28 AM SCHEDULING CLERK Pulse 89 10/30/2024 11:28 AM SCHEDULING CLERK Temperature 36.7 C (98.1 F) 10/30/2024 11:28 AM SCHEDULING CLERK Respiratory Rate 16 10/30/2024 11:28 AM SCHEDULING CLERK Oxygen Saturation 98% 10/30/2024 11:28 AM SCHEDULING CLERK Inhaled Oxygen Concentration - - Weight 77.8 kg (171 lb 8 oz) 10/30/2024 11:28 AM SCHEDULING CLERK Height 177.8 cm (5' 10 ) 10/30/2024 11:28 AM SCHEDULING CLERK Body Mass Index 24.61 10/30/2024 11:28 AM SCHEDULING CLERK Plan of Treatment Upcoming Encounters Date Type Department Care Team (Late st Contact Info) Description 05/07/2025 10:00 AM CDT Laboratory Only [facility] Family & Internal Medicine [address] [phone] Ag Tanner DO [address] [place] [phone] 05/14/2025 10:20 AM CDT Office Visit [facility] Family & Internal [address] [phone] Ag Tanner DO [address] [place] [address] Health Maintenance Due Date Last Done Comments Annual Medicare Wellness Visit 2023 PHQ-2 (Physician [place]) 11/21/2024 10/30/2024 COVID-19 Vaccine ( season) 2025 10/30/2024, 09/06/2023, 11/10/2022, Additional history exists RSV Immunization or 60+ Years (1 - Risk 60-74 years 1-dose series) 04/30/2025 Postponed fro m 2018 (Going to Outside Clinic) DTaP, Tdap and Td Vaccines (2 - Td or Tdap) 08/12/2030 08/12/2020 Colorectal Cancer Screening Colonoscopy (10 Years) 11/04/2033 11/04/2023, 04/07/2015 Zoster Vaccines Completed 07/29/2021, 05/21/2021 Pneumococcal Vaccine: 50+ Years Completed 02/21/2023 Hepatitis C Completed 12/26/2023, 03/24/2022 Meningococcal B Vaccine Aged Out No l onger eligible based on patient's age to complete this topic Meningococcal Vaccine Aged Out No mariel radha eligible based on patient's age to complete this topic RSV Immunizations Under 20 Months Aged Out No longer eligible based on patient's age to complete this topic Procedures Procedure Name Priority Date/Time Associated Diagnosis Comments HEP C SCANNED ORDERS Routine 12/26/2023 COLONOSCOPY GENERIC (SCAN ORDER) 11/04/2023 from Last 3 Months or Most Recently Relevant to Health Maintenance Results * HEP C SCANNED ORDERS (12/26/2023) [facility] * COLONOSCOPY GENERIC (11/04/2023) 11/04/2023 [facility] Scanned SCANNING Final Resu lt from Last 3 Months or Most Recently Relevant to Health Maintenance Insurance [facility] Care Teams Administrative Personal Assistant Relationship Specialty Start Date End Date Ag Tanner DO [address] [place] [phone] PCP - General FAMILY PRACTICE 01/23/21
--- OUTSIDE RECORDS SUMMARY | 2025-03-15 07:52 | XMS_ITS | Clinical Summary ---
Author Organization [facility] Address [address] [place] [phone] Phone Care Team Providers Care Ergonomic Specialist Name Role Phone Unavailable Primary Care Provider Unavailabl e Medications metoprolol succinate XL (TOPROL-XL) 50 MG 24 hr tablet 1 tab/cap qday 06/23/2014 Active aspirin EC 325 MG EC tablet 1 tab/cap qday 06/23/2014 Active pravastatin (PRAVACHOL) 20 MG tablet 1 tab/cap qday 06/23/2014 Active gemfibrozil (LOPID) 600 MG tablet 1 tab/cap qday 06/23/2014 Active lisinopril-hydro CHLOROthiazide (PRINZIDE,ZESTOR ETIC) 20-12.5 MG per tablet 1 tab/cap qday 06/23/2014 Active Active Problems Problem Noted Date Diagnosed Date Chronic kidney disease, stage 2 (mild) 4 Chronic kidney disease 06/23/2014 Essential (primary) hypertension 06/23/2014 Other and unspecified hyperlipidemia 06/23/2014 Overview (02/03/2019): Converted unresolved ICD9, potential mismatch. Anemia 06/23/2014 Family History Medical History Relation Comments Kidney disease Neg Hx Kidney stone Neg Hx Social History Tobacco Use Types Packs/Day Years Used Date Smoking Tobacco: Never Assessed Sex and Gender Information Value Date Recorded Sex Assigned at Not on file Legal Sex Male 9:54 AM MST Gender Identity Not on file Sexual Orientation Not on file Last Filed Vital Signs Vital Sign Reading Time Taken Comments Blood Pressure 134/70 08/07/2014 12:01 AM CDT Sitting, Left Pulse - - Temperature 36.7 C (98.1 F) 08/07/2014 12:01 AM CDT Respiratory Rate - - Oxygen Saturation - - Inhaled Oxygen Concentration - - Weight 79.4 kg (175 lb) 08/07/2014 12:0 1 AM CDT Height 172.7 cm (5' 8 ) 08/07/2014 12:0 1 AM CDT Body Mass Index 26.61 08/07/2014 12:01 AM CDT Plan of Treatment Not on file
== END 2025-03-15 07:50 | disposition home or self-care (01) ==
PROVIDERS: PCP Student in an Organized Health Care Education/Training Program; Visit Provider Internal Medicine Gastroenterology
DX: K76.0 Fatty (change of) liver, not elsewhere classified (principal); R74.8 Abnormal levels of other serum enzymes; K80.20 Calculus of gallbladder without cholecystitis without obstruction
CPT/HCPCS: 76705

== ENCOUNTER 2025-09-16 10:46 | Outpatient (CLI) | payer MEDICARE, SELFPAY ==
[2025-09-16 11:06] LABS: Hematocrit 37.1 % (42.0-52.0); Hemoglobin 13.2 g/dL (14.0-18.0); Mean Corpuscular HGB Conc 35.6 g/dl (32-36); Mean Corpuscular Hemoglobin 30.8 pg (26-34); Mean Corpuscular Volume 86.5 fl (80-100); Platelet Count Result 158 k/mm3 (150-375); Red Blood Count 4.29 M/mm3 (4.6-6.20); White Blood Count 4.0 K/mm3 (4.5-10.0)
[2025-09-16 11:37] LABS: Alanine Aminotransferase 38 U/L (6-50); Albumin Level 4.7 g/dL (3.5-5.1); Alkaline Phosphatase 58 U/L (38-126); Anion Gap 7 mmol/L (4-12); Aspartate Amino Transferase 34 U/L (17-59); Bilirubin,Total 0.5 mg/dL (0.2-1.3); Blood Urea Nitrogen 16 mg/dL (9-20); Calcium 9.1 mg/dL (8.4-10.2); Carbon Dioxide 27 mmol/L (22-30); Chloride 104 mmol/L (98-107); Estimated Glomerular Filt Rate 60; Glucose 102 mg/dL (65-110); Potassium 4.1 mmol/L (3.4-5.0); Sodium 138 mmol/L (137-145); Total Protein 7.9 g/dL (6.3-8.2)
--- OUTSIDE RECORDS SUMMARY | 2025-09-16 12:15 | XMS_ITS | Clinical Summary ---
Author Organization [facility] Address [address] [place] [phone] Phone Care Team Providers Care Manager Cleaning Name Role Phone Unavailable Primary Care Provider [...] 1 AM CDT Height 172.7 cm (5' 8) 08/07/2014 12:0 1 AM CDT Body Mass Index 26.61 08/07/2014 12:01 AM CDT Plan of Treatment Not on file
--- OUTSIDE RECORDS SUMMARY | 2025-09-16 12:15 | XMS_ITS | Clinical Summary ---
Author Organization [facility] Address [address] [place] [address] Care Team Providers Care Plater Supervisor Name Role Phone Ag Tanner Primary Care Provider + Allergies No known active allergies Medications vitamin B-12 (CYANOCOBALAMIN) 1000 mcg tablet Take 1 tablet (1,000 mcg total) by mouth daily. 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 Encounters Date Type Department Care Team Description 08/29/2025 Telephone [facility] Medical [facility] Family & Internal Medicine [address] [phone] Ag Tanner DO Error 06/20/2025 Scan [facility]ogn[facility] INFO SRVCS Scanned, Doc Med Group 06/20/2025 MyChart Message Enc [facility] Internal [address] [phone] Ag Tanner DO Vaccine from Last 3 Months Immunizations Immunization Administration Dates Next Due Fluzone High Dose (IIV, trivalent, 0.5mL) 2023 Fluzone High Dose - >Age 65 (Prefilled Syringe) 09/01/2023 MODERNA COVID-19 (CHEFS THAO TIAGO), MRNA, LNP-S, PF, 50 MCG/ [...] Passive Smoke Exposure: Never Smokeless Tobacco: Never Tobacco Cessation:Counseling Given: Yes Alcohol Use Standard Drinks/Week Comments Yes 20 [...] Date Recorded Patient Health Questionnaire-2 Score 0 06/04/2025 Sex and Gender Information Value Date Recorded Sex Assigned at Male 10/30/2024 11:28 AM UNDERGROUND ELECTRICIAN Legal Sex Male 1:47 PM UNDERGROUND ELECTRICIAN Gender Identity Male 10/30/2024 11:28 AM UNDERGROUND ELECTRICIAN Sexual Orientation Not on file Occupation Industry Job Start Date Job End Date Not on file Not on file Not on file Not on file Last Filed Vital Signs Vital Sign Reading Time Taken Comments Blood Pressure 116/74 06/04/2025 8:09 AM CDT Pulse 84 06/04/2025 8:09 AM CDT Temperature 36.9 C (98.4 F) 06/04/2025 8:09 AM CDT Respiratory Rate 16 06/04/2025 8:09 AM CDT Oxygen Saturation 98% 06/04/2025 8:09 AM CDT Inhaled Oxygen Concentration - - Weight 75.5 kg (166 lb 6.4 oz) 06/04/2025 8:09 A M CDT Height 177.8 cm (5' 10) 06/04/2025 8:09 AM CDT Body Mass Index 23.88 06/04/2025 8:09 AM CDT Plan of Treatment Upcoming Encounters Date Type Department Care Team (Late st Contact Info) Description 12/10/2025 10:20 AM UNDERGROUND ELECTRICIAN Office Visit [facility] Medical Group Family & Internal Medicine [place] [address] [place] [address] Ag Tanner, [address] [place] [address] Health Maintenance Due Date Last Done Comments Hepatitis A Vaccines (1 of 2 - Risk 2-dose series) 1979 Annual Medicare Wellness Visit 2023 COVID-19 Vaccine ( season) 2025 10/30/2024, 09/06/2023, 11/10/2022, Additional history exists Influenza Adult (#1) 2025 10/30/2024, 09/01/20 23 RSV Immunization or 60+ Years (1 - Risk 60-74 years 1-dose series) 06/04/2026 Postponed fro m 2018 (Going to Outside Clinic) DTaP, Tdap and Td Vaccines (2 - Td or Tdap) 08/12/2030 08/12/2020 Colorectal Cancer Screening Colonoscopy (10 Years) 11/04/2033 11/04/2023, 04/07/2015 Zoster Vaccines Completed 07/29/2021, 05/21/2021 Pneumococcal Vaccine: 50+ Years Completed 02/21/2023 Hepatitis C Completed 12/26/2023, 03/24/2022 PHQ-2 (Physician [place]) Completed 06/04/2025 Meningococcal B Vaccine Aged Out No l [...] Results * HEP C SCANNED ORDERS (12/26/2023) [facility] Scanned SCANNING Final Resu lt [facility] * COLONOSCOPY GENERIC (11/04/2023) 11/04/2023 [facility] Scanned SCANNING Final Resu lt from Last 3 Months or Most Recently Relevant to Health Maintenance Insurance [facility] MEDICARE Care Teams Plater Supervisor Relationship Specialty Start Date End Date Ag Tanner DO [address] [place] [phone] PCP - General FAMILY PRACTICE 01/23/21
--- OUTSIDE RECORDS SUMMARY | 2025-09-16 12:15 | XMS_ITS | Encounter Summary ---
Author Organization [facility] Address [address] [place] [id number] Care Team Providers Care Pad Cutter Name Role Phone Ag Tanner DO Primary Care Provider + Encounter Details Date Type Department Care Team (Late st Contact Info) Description 06/09/2024 MyChart Message Enc [facility] Family & Internal Medicine [facility] [address] [place] [phone] Ag Tanner DO [address] [place], [place] [id number] Vaccination Social History Tobacco Use Types Packs/Day [...] Sex Assigned at Male 10/30/2024 11:28 AM SORTER OPERATOR Legal Sex Male 1:47 PM SORTER OPERATOR Gender Identity Male 10/30/2024 11:28 AM SORTER OPERATOR Sexual Orientation Not on file Occupation Industry Job Start Date Job End Date Not on file Not on file Not on file Not on file documented as of this encounter Plan of Treatment Upcoming Encounters Date Type Department Care Team (Late st Contact Info) Description 12/10/2025 10:20 AM SORTER OPERATOR Office Visit [facility] Family & Internal Medicine - [address] [phone] Ag Tanner DO [address] [place] [id number] documented as of this encounter Visit Diagnoses Not on filedocumented in this encounter Additional Health Concerns Assessment Noted Time PHQ-9 Depression Total Score: 0 01/24/20 11:19 AM SORTER OPERATOR documented as of this encounter Care Teams Pad Cutter Relationship Specialty Start Date End Date Ag Tanner DO [address] [place] [id number] PCP - General FAMILY PRACTICE 01/23/21 documented as of this encounter
--- OUTSIDE RECORDS SUMMARY | 2025-09-16 12:15 | XMS_ITS | Clinical Summary ---
Author Organization [facility] Address [address] [place] [address] Care Team Providers Care Mastercam Programmer Name Role Phone Unavailable Primary Care Provider Unavailabl e Source Comments [facility],non-owned Affiliates and Associated Physician Practices is amultiple site organization consisting of ambulatory clinics and hospital sitesin [place], [place], [place] and [place]. This disclosure is being madepursuant to the Care Everywhere program and may not contain all information available regarding this patient. 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, [place] [employer] MANAGED MEDICARE ADV
== END 2025-09-16 10:47 | disposition home or self-care (01) ==
LOC: ANHLAB 10:49
PROVIDERS: PCP Student in an Organized Health Care Education/Training Program; Visit Provider Internal Medicine Gastroenterology
DX: D64.9 Anemia, unspecified (principal); R74.8 Abnormal levels of other serum enzymes
CPT/HCPCS: 36415; 80053; 85027